=== PATIENT | male | born 1965 | race Two or more races ===

== ENCOUNTER → 2025-04-03 | Outpatient (REF) | payer OTHER, MEDICAID ==
[2025-04-03 15:09] LABS: CREATININE, URINE 43.6 MG/DL
[2025-04-03 15:10] LABS: MALB URINE SIEMENS 28.0 MG/L; MAU/CREAT RATIO 64.2 MCG/MG (0.0-30.0)
[2025-04-03 17:11] LABS: PLATELET COUNT, AUTOMATED 230 10^3/uL (150-450)
[2025-04-03 17:38] LABS: ESTIMATED AVERAGE GLUCOSE 315.0 MG/DL (60-110)
[2025-04-03 17:48] LABS: HIV 1&2 SCREEN NEGATIVE (NEGATIVE)
[2025-04-03 17:56] LABS: HEPATITIS C VIRUS ABY INDEX 0.04 INDEX (<0.8)
[2025-04-03 18:06] LABS: ALT/SGPT < 9 U/L (7.0-40); AST/SGOT 13 U/L (<34); CALCIUM LEVEL 9.4 MG/DL (8.3-10.6); CARBON DIOXIDE LEVEL 26 MMOL/L (20-31); CHLORIDE LEVEL 97 MMOL/L (98-107); CHOLESTEROL LEVEL 187 MG/DL (<200); CHOLESTEROL RISK RATIO 3.64 (<5); CREATININE FOR GFR 0.98 MG/DL (0.70-1.30); GLOMERULAR FILTRATION RATE 87.7 (>49); LDL CHOLESTEROL 116.9 MG/DL (<100); NON-HDL-C 135.7 MG/DL; POTASSIUM SERUM 5.2 MMOL/L (3.5-5.1); PSA SCREENING 0.85 NG/ML (< 4.00); SODIUM LEVEL 130 MMOL/L (136-145); TRIGLYCERIDES LEVEL 94 MG/DL (<150)
[2025-04-07 06:28] LABS: T PALLIDUM ANTIBODIES POSITIVE (NEGATIVE)
[2025-04-07 12:37] LABS: RPR NON-REACTIVE (NON-REACTIVE)
== END ==
LOC: M LAB REF 14:27
PROVIDERS: ATTEND Nurse Practitioner Family
DX: E11.8 Type 2 diabetes mellitus with unspecified complications (principal); Z11.9 Encounter for screening for infectious and parasitic diseases, unspecified; Z12.5 Encounter for screening for malignant neoplasm of prostate

== ENCOUNTER → 2025-04-08 | Outpatient (REF) | payer OTHER, MEDICAID | LOC: M LAB REF 16:27 | PROVIDERS: ATTEND Nurse Practitioner Family | DX: Z86.19 Personal history of other infectious and parasitic diseases (principal) ==

== ENCOUNTER → 2025-05-28 | Outpatient (CLI) | payer OTHER | LOC: M RAD 09:55 | PROVIDERS: ATTEND Nurse Practitioner Family | DX: Z12.2 Encounter for screening for malignant neoplasm of respiratory organs (principal); F17.210 Nicotine dependence, cigarettes, uncomplicated ==